=== PATIENT | female | born 1980 | race African-American/Black ===

== ENCOUNTER 2020-01-16 12:40 | Emergency (ER) | payer OTHER, SELFPAY ==
[2020-01-16 12:49] VITALS: BP 136/91; PULSE 96; RESP 14; TEMP 36.8; O2SAT 100
--- NOTE | 2020-01-16 13:00 | RT.EKG_ITS ---
APPROVED REPORT Exam: Resting ECG Patient Location: E HR:79 bpm ECG Measurements Heart Rate 79 AXIS NV 134 P 13 QRSd 83 QRS 47 QT 352 T -12 QTc 405 Conclusion Sinus rhythm...normal P axis, V-rate 60- 99. T wave inversion III. No STEMI. I have reviewed and interpreted ECG and agree with software generated interpretation.
--- NOTE | 2020-01-16 13:11 | W.ED.GENAD ---
Discharge Plan Disposition Patient Disposition: HOME Condition: Stable Discharge Details Clinical Impression: Palpitations Primary Care Provider: [facility] Provider: Lindsay Iyer Home Meds and New Rx's Prescriptions: No Action ascorbic acid (vitamin C) [Vitamin C] 500 mg Tablet PO PRN PRNRF: 0 Discharge Instructions Instructions: Heart Palpitations (ED) Additional Instructions: Follow up with primary care provider in 3-5 days. Return to ED sooner if any worsening or concerns. Increase oral fluids. Please take Tylenol or Ibuprofen with food every 4-6 hours as needed for pain and swelling. Return for any worsening symptoms, vomiting, fever or any concerns. Stand Alone Forms: Work Release Discharge Data Discharge Date/Time-TO BE ENTERED AT DEPARTURE: 01/16/20 15:14 Medical Decision Making 39-year-old female presents to the ER with chief complaint of palpitations and generalized not feeling well. She states this is been ongoing for last couple of days. She reports her heart rate was elevated and she has generalized weakness. She denies any chest pain, abdominal pain vomiting or diarrhea. Denies any dysuria. Last menstrual period was 26 of last month. She is working a travel assignment at [employer] and is and originally from [place] but has not traveled out of the state the last 14 days. She denies any fever or any other concerns. EKG was reviewed by Shonna Morales MD ER attending, please see her official read. No old EKG available for review. Labs reviewed and are largely within normal limits. She does have a glucose is 108,, d-dimer is 369 which is been within normal limits. At this time no indication for patient symptoms. She denies normal saline while in department. Discussed lab results with patient who verbalized understanding. Instructed to follow-up with PCP 3 to 5 days return to the ED for any worsening strict return instructions discussed. HPI General Mode of arrival: ambulatory. Date/Time Provider Initiated Documentation: 01/16/20 13:03. Limitations to Documentation: no limitations. Information obtained by: patient. HPI Narrative: 39-year-old female presents to the ER with chief complaint of palpitations and generalized not feeling well. She states this is been ongoing for last couple of days. She reports her heart rate was elevated and she has generalized weakness. She denies any chest pain, abdominal pain vomiting or diarrhea. Denies any dysuria. Last menstrual period was 26th of last month. She is working a travel assignment at [employer] and is and originally from [place] but has not traveled out of the state the last 14 days. She denies any fever or any other concerns. Related Data Home Medications Medication Instructions Recorded Confirmed ascorbic acid (vitamin C) [Vitamin mg PO PRN PRN 01/16/20 C] Allergies Allergy/AdvReac Type Severity Reaction Status Date / Time eggs Allergy Intermediate Hives Uncoded 01/16/20 12:53 General Stated Complaint: [facility] DAYAMI: 3 Review of Systems Narrative: Constitutional: Negative for weight loss, alert and oriented, well groomed, normal body habitus, appears comfortable. HEENT: Denies trauma, headaches, blurry vision, nasal discharge, sore throat, trouble swallowing. Chest: Denies chest pain, irregular rhythm, hypertension. Positive palpitations. Respiratory: Denies Shortness of breath, cough, hemoptysis. GI: Denies abdominal pain, nausea, vomiting, diarrhea, constipation. : Denies dysuria, hematuria, flank pain, rectal bleeding. Neuro: Denies dizziness, blurry vision, syncope, headache or facial numbness. Positive generalized weakness. Hematologic: Denies easy bruising, intolerance to heat or cold, hair loss. [facility] Social History Smoking/Tobacco Use Status: Never Alcohol Intake: current Alcohol Intake frequency: a few times a month Drug use: Never Do you feel safe at home: Yes Do you feel safe in your relationship?: Yes Exam Narrative Exam Narrative: Constitutional: Alert and oriented x3. Appears stated age. Normal body habitus. Head: Normocephalic, no trauma. Eyes: Pupils PERRLA, Red reflex noted, EOM's intact. Eyelids symmetrical without lesions, discharge, or swelling. ENT: Bilateral TM's WNL, External ear normal to inspection, no mastoid TTP, swelling, or erythema, Nasal turbinates WNL, no nasal discharge. Normal dentition, Posterior pharynx WNL, no exudate. Chest: RRR, Normal S1, S2, distal pulses intact. Resp: Lungs clear to auscultation bilaterally, no wheezes, rales, or rhonchi. Musculoskeletal: Normal gait, 5/5 strength to all four extremities. Skin: No suspicious rashes or lesions. Capillary refill less than 2 sec. Neurologic: Cranial nerves II-XII intact. Alert and oriented x 3. DTR's intact. Hematologic/Lymphatic: No ecchymosis, no lymphadenopathy. Course Vital Signs Vital signs: Vital Signs Temperature 36.8 C 01/16/20 12:49 Pulse 96 H 01/16/20 12:49 Respiratory Rate 14 01/16/20 12:49 Blood Pressure 136/91 H 01/16/20 12:49 Pulse Oximetry 100 01/16/20 12:49 Temperature 36.8 C 01/16/20 12:49 Temperature Source Skin 01/16/20 12:49 Pulse 96 H 01/16/20 12:49 Respiratory Rate 14 01/16/20 12:49 Respiratory Effort 01/16/20 12:55 Blood Pressure 136/91 H 01/16/20 12:49 Blood Pressure Position Sitting 01/16/20 12:49 Pulse Oximetry 100 01/16/20 12:49 Oxygen Delivery Method Room Air 01/16/20 12:49 Oxygen Flow Rate 0 01/16/20 12:49 Pain Level 0 01/16/20 12:49
[2020-01-16 13:49] LABS: Abs Immature Grans 0.01 10^3/uL (0.0-0.06); Absolute Basophil Count 0.03 10^3/uL (0.0-0.2); Absolute Eosinophil Count 0.04 10^3/uL (0.0-0.7); Absolute Lymphocyte Count 1.44 10^3/uL (1.2-3.4); Absolute Neutrophil Count 4.34 10^3/uL (1.2-6.7); Basophils % 0.5; Eosinophils % 0.6; HCT 38.8 % (36.0-46.0); HGB 12.7 g/dL (11.2-15.7); Immature Grans % 0.2; MCH 29.7 pg (27.0-33.0); MCHC 32.7 % (32.0-36.0); MCV 90.9 fL (80-95); MPV 10.1 fL (8.0-11.0); Monocytes % 6.4; Neutrophils % 69.3; Nucleated RBC 0 %; Platelet Count 273 10^3/uL (130-400); RBC 4.27 10^6/uL (3.93-5.22); RDW 12.5 % (11.7-14.6); WBC 6.26 10^3/uL (4.4-10.8)
[2020-01-16] MEDS: Normal Saline Flush 10 ML SYR IVP (13:53)
[2020-01-16] MEDS: Normal Saline 1,000 ML 1000 ML IV (13:53)
[2020-01-16 13:54] LABS: Bilirubin Negative (Negative); Blood Small (Negative); Clarity Clear (Clear); Glucose Negative (Negative); Ketones Negative (Negative); Leukocyte Esterase Negative (Negative); Nitrite Negative (Negative); Urobilinogen 0.2 EU/dL (Up TO 0.2)
[2020-01-16 13:56] VITALS: RESP 14
[2020-01-16 14:04] LABS: ALT 29 U/L (14-59); AST 16 U/L (15-37); Albumin 3.9 g/dL (3.4-5.0); Alkaline Phosphatase 69 U/L (46-116); Anion Gap 6.3 mmol/L (3-11); BUN 11 mg/dL (7-18); Bilirubin, Total 0.3 mg/dL (0.2-1.0); CO2 28.7 mmol/L (21.0-32.0); Calcium 9.2 mg/dL (8.5-10.1); Chloride 101 mmol/L (98-107); Glucose 108 mg/dL (74-106); Magnesium 2.1 mg/dL (1.8-2.4); Potassium 3.5 mmol/L (3.5-5.1); Sodium 136 mmol/L (136-145); Total Protein 8.5 g/dL (6.4-8.2)
[2020-01-16 14:05] LABS: Troponin I < 0.05 ng/mL (<0.06)
[2020-01-16 14:09] LABS: Epithelial Cells Many HPF (Negative); Other Cells Rare Renal (Negative); WBC 0-2 HPF (0-5)
[2020-01-16 14:10] LABS: Bacteria Rare HPF (Negative); C & S Indicated? No; Casts Negative LPF (Negative); Crystals Negative HPF (Negative); Mucus Negative (Negative)
[2020-01-16 14:19] LABS: D-Dimer 369 ng/mlFEU (<500)
[2020-01-16 15:15] VITALS: BP 114/76; PULSE 83; RESP 16; TEMP 36.8; O2SAT 96
== END 2020-01-16 15:14 | disposition home or self-care (01) ==
LOC: ER 15:09
PROVIDERS: Emergency Provider Registered Nurse Emergency; PCP Family Medicine
DX: R00.2 Palpitations (principal); R53.1 Weakness
CPT/HCPCS: 36415; 80053; 81025; 93005; 96360; 99284; 81003; 81015; 83735; 84484; 85025; 85379; 93010